=== PATIENT | male | born 1955 | race Caucasian/White ===

== ENCOUNTER → 2023-06-22 11:37 | Outpatient (REF) | payer BC, SELFPAY | LOC: RAD 11:37 | PROVIDERS: ATTENDING PHYSICIAN Chiropractor; FAMILY PHYSICIAN Internal Medicine | DX: S22.32XA Fracture of one rib, left side, initial encounter for closed fracture (principal) | CPT/HCPCS: 71101; 72072 ==

== ENCOUNTER → 2024-10-04 11:03 | Outpatient (REF) | payer OTHER, SELFPAY | LOC: RAD 11:03 | PROVIDERS: ATTENDING PHYSICIAN Chiropractor; FAMILY PHYSICIAN Internal Medicine | DX: M54.50 Low back pain, unspecified (principal); M99.03 Segmental and somatic dysfunction of lumbar region; M99.04 Segmental and somatic dysfunction of sacral region; M99.05 Segmental and somatic dysfunction of pelvic region; M54.31 Sciatica, right side; M54.41 Lumbago with sciatica, right side; M25.551 Pain in right hip; M25.552 Pain in left hip | CPT/HCPCS: 72110; 72170; 73523 ==

== ENCOUNTER → 2024-11-08 11:00 | Outpatient (REF) | payer OTHER, SELFPAY | LOC: HWRAD 11:00 | PROVIDERS: ATTENDING PHYSICIAN Internal Medicine | DX: R91.1 Solitary pulmonary nodule (principal) | CPT/HCPCS: 71250 ==

== ENCOUNTER → 2024-11-15 06:51 | Outpatient (REF) | payer OTHER, SELFPAY | LOC: MRI 3T 06:51 | PROVIDERS: ATTENDING PHYSICIAN Internal Medicine; FAMILY PHYSICIAN Internal Medicine | DX: M54.51 Vertebrogenic low back pain (principal); M54.16 Radiculopathy, lumbar region | CPT/HCPCS: 72148 ==